=== PATIENT | female | born 1990 | race Caucasian/White ===

== ENCOUNTER → 2016-08-28 | Outpatient (CLI) | payer OTHER ==
[~2016-08-28] MED LIST: COLACE-DPS100 MG PO; MOTRIN-DPS800 MG PO; NIPPLECREAM TP; PERCOCET 5 DPS1 TAB PO; PRENATAL VIT1 TAB PO; TYLENOL #3 DPS1 TAB PO; ZOFRAN8 MG PO
== END | disposition home or self-care (01) ==
LOC: PTH.S 17:53
DX: R10.9 Unspecified abdominal pain (principal); R19.7 Diarrhea, unspecified